=== PATIENT | female | born 1965 | race Caucasian/White ===

== ENCOUNTER 2020-02-21 07:57 | Day surgery (SDC) | payer BC ==
[~2020-02-21 07:57] MED LIST: Dextrose 5%-0.45% NaCl 1,000 ML IV SCH; Midazolam 1 MG/ML 2 ML SDV ONE; fentaNYL 100 MCG/2 ML SDV ONE
[2020-02-21] MEDS ORDERED: Midazolam 1 MG/ML 2 ML SDV IV ONE ×11 (07:58→08:50)
[2020-02-21] MEDS ORDERED: fentaNYL 100 MCG/2 ML SDV IV ONE ×3 (07:58→08:38)
[2020-02-21 10:55] VITALS: BP 143/81; PULSE 65
--- NOTE | 2020-02-21 12:10 | OR ---
DATE: 02/21/2020 POSTOPERATIVE DIAGNOSIS: Screening colonoscopy. POSTOPERATIVE DIAGNOSIS: Screening colonoscopy. PROCEDURE: Total colonoscopy. ANESTHESIA: Conscious sedation with IV Versed and fentanyl. SPECIMEN: None. FINDINGS: Normal colonoscopy. RECOMMENDATIONS: Followup colonoscopy in 10 years for screening or sooner for symptoms. INDICATION FOR PROCEDURE: This 54-year-old female referred by the [facility] for evaluation of screening colonoscopy. She has not had any prior exams. PROCEDURE IN DETAIL: After adequate preparation, a colonoscope was inserted into the rectum, this was easily passed all the way to the cecum. Confirmation of the cecum was made by visualization of the ileocecal valve and the appendiceal opening. The bowel prep was excellent. On withdrawal of the scope, no abnormalities were noted. Air was suctioned from the colon. The rectal and anal examination were normal. The patient was taken to recovery room. [facility] /[id number]
== END 2020-02-21 10:21 | disposition home or self-care (01) ==
LOC: DL.ENDO 07:57
PROVIDERS: ATTEND Surgery
DX: Z12.11 Encounter for screening for malignant neoplasm of colon (principal); Z98.890 Other specified postprocedural states; Z01.812 Encounter for preprocedural laboratory examination; Z20.828 Contact with and (suspected) exposure to other viral communicable diseases
CPT/HCPCS: 45378; 87635; J2250; J3010; J7042; U0002